=== PATIENT | female | born 1930 | race Caucasian/White ===

== ENCOUNTER 2017-12-26 08:27 | Observation (INO) | payer OTHER ==
[~2017-12-26] VITALS: Ht 160 cm; Wt 63.5 kg
[2017-12-26 08:30] VITALS: BP 183/85
--- NOTE | 2017-12-26 08:30 | NUR ---
PT BIBA TO BED 1
--- NOTE | 2017-12-26 08:35 | NUR ---
87F [facility] FROM [facility] C/O RT LEG PAIN S/P MECHANICAL FALL. PER [facility], PT WAS FOUND ON FLOOR THIS MORNING. PT STATES NO LOC AT TIME OF INCIDENT. PT AWAKE, ALERT, APPROPRIATE ON ARRIVAL. HX: CVA, SYNCOPE, HTN, DEPRESSION. DENIES N/V/D; SKIN IS PINK/WARM/DRY; AAOX4 , PT STATED USED TO AMB WITH WALK AT FACILITY. LUNGS CLEAR BL; PT DENIES ANY FEVER, CP, SOB, OR COUGH AT THIS TIME; PATIENT STATES PAIN OF 4/10 AT THIS TIME. PATIENT POSITIONED FOR COMFORT; HOB ELEVATED; BEDRAILS UP X2; BED DOWN. ER MD MADE AWARE OF PT STATUS.
[2017-12-26] MEDS ORDERED: ACETAMINOPHEN EXTRA STRENGTH 500 MG TAB PO ONE (08:45)
--- NOTE | 2017-12-26 08:59 | NUR ---
LAB AT BEDSIDE.
[2017-12-26 09:18] LABS: HEMATOCRIT 42.6 % (36-48); HEMOGLOBIN 13.7 g/dL (12.0-16.0); MEAN CORPUSCULAR HEMOGLOBIN 27 pg (27-31); MEAN CORPUSCULAR HGB CONC 32 g/dL (33-37); MEAN CORPUSCULAR VOLUME 82 fL (80-94); PLATELET COUNT (AUTO) 274 K/uL (140-450); RED BLOOD CELL COUNT(AUTO) 5.19 MIL/uL (4.20-5.40); RED CELL DISTRIBUTION WIDTH 14.4 % (11.6-13.7); WHITE BLOOD COUNT (AUTO) 12.4 K/uL (4.8-10.8)
[2017-12-26 09:19] LABS: BILIRUBIN,URINE NEGATIVE (NEGATIVE); BLOOD, URINE TRACE-I (NEGATIVE); COLOR,URINE YELLOW (YELLOW); LEUKOCYTE ESTERASE ,URINE NEGATIVE (NEGATIVE); NITRITE, URINE NEGATIVE (NEGATIVE); PH,URINE 7.5 (5.0-9.0); UGLUCOSE NEGATIVE (NEGATIVE)
[2017-12-26 09:30] LABS: ALBUMIN 3.8 g/dL (3.4-5.0); ANION GAP 13.7 (8-16); ASPARTATE AMINOTRANSFERASE 16 U/L (15-37); CARBON DIOXIDE 26.6 mmol/L (21-32); CHLORIDE 101 mmol/L (98-107); CREATININE 0.8 mg/dL (0.6-1.3); GLUCOSE 143 mg/dL (74-106); LYMPHOCYTES % (MANUAL) 11 % (20-46); MONOCYTES % (MANUAL) 4 % (5-12); POTASSIUM 3.3 mmol/L (3.5-5.1); SODIUM SERUM 138 mmol/L (136-145); TOTAL BILIRUBIN 0.8 mg/dL (0.0-1.0); UREA NITROGEN, BLOOD 14 mg/dL (7-18)
--- NOTE | 2017-12-26 09:37 | NUR ---
X RAY AT BEDSIDE.
[2017-12-26 09:40] LABS: APPEARANCE,URINE SLIGHTLY HAZY (CLEAR)
[2017-12-26 09:41] LABS: RBC,URINE 0-5 (RARE) /HPF (0-5); WBC,URINE 0-5 (RARE) /HPF (0-5)
--- NOTE | 2017-12-26 10:42 | NUR ---
PT AMB WITH ASSISTED 20 FEET.
--- NOTE | 2017-12-26 10:56 | NUR ---
X RAY AT BEDSIDE.
--- NOTE | 2017-12-26 11:07 | NUR ---
CALLED [facility] TO VERIFY PATIENT'S MEDICATIONS; SPOKE WITH TROY; TROY STATES PT TAKES HER OWN MEDICATION; SPOKE WITH FAMILY AT BEDSIDE; FAMILY STATES WILL CALL PT'S PRIMARY SIMULATION DEVELOPER, AND FAX MEDICATION LIST TO FAX NUMBER PROVIDED.
--- NOTE | 2017-12-26 11:14 | NUR ---
FAMILY AT BEDSIDE.
[2017-12-26] MEDS ORDERED: ACETAMINOPHEN 325 MG TAB PO PRN (11:40)
[2017-12-26] MEDS ORDERED: MORPHINE SULFATE 2 MG/ML SYR IVP PRN (11:40)
[2017-12-26] MEDS ORDERED: HYDROcodone/APAP 5/325 MG 1 TAB TAB PO PRN (11:40)
[2017-12-26 12:00] VITALS: BP 160/66
--- NOTE | 2017-12-26 12:00 | NUR ---
PATIENT WAS TRANSFERRED TO THE UNIT FROM ER IN [facility]. REPORT WAS GIVEN AT BEDSIDE. PATIENT IS AWAKE, ALERT, ORIENTED X3. RESPIRATION EVEN, UNLABOR ON ROOM AIR. SKIN DRY AND WARM. IV PATENT AND INTACT. VS WAS TAKEN. MRSA WAS SWABBED. PATIENT WAS ORIENTED TO ROOM, STAFF AND CALL LIGHT. DENIED PAIN, N/V. PLAN OF CARE WAS DISCUSSED WITH PATIENT AND FAMILY. BED AT LOW POSITION, SIDE RAILS ON, BED ALARM ON. CALL LIGHT WITHIN REACH
--- NOTE | 2017-12-26 12:01 | NUR ---
PT TAKEN TO THE FLOOR BY LEENA WATTS AND SHERLY CHEW
--- NOTE | 2017-12-26 12:07 | NUR ---
Patient will be admitted to care of DR STRAUSS. Admited to TELE. Will go to room 121A. Belongings list completed. Report to LEENA ENGEL.
--- NOTE | 2017-12-26 15:00 | NUR ---
DR. STRAUSS WAS AT BEDSIDE. NOTIFIED MD REGARDING CURRENT HOME MEDS, ADVISED TO CONTINUE WITH HOME MEDS
[2017-12-26] MEDS ORDERED: POTASSIUM CHLORIDE 10 MEQ TABER PO SCH (15:30)
[2017-12-26 16:00] VITALS: BP 144/69
--- NOTE | 2017-12-26 16:00 | NUR ---
PATIENT IS AWAKE, ALERT. RESPIRATION EVEN, UNLABOR ON ROOM AIR. DENIED PAIN AT THIS TIME. NO DISTRESS NOTED. FAMILY AT BEDSIDE. CALL LIGHT WITHIN REACH
--- NOTE | 2017-12-26 18:27 | NUR ---
HOME MEDS WERE GIVEN TO PHARMACIST TO DISPENSE
--- NOTE | 2017-12-26 18:40 | NUR ---
PATIENT AWAKE, ALERT. RESPIRATION EVEN, UNLABOR ON ROOM AIR. DENIED PAIN AT THIS TIME. IV PATENT AND INTACT. CALL LIGHT WITHIN REACH. FAMILY AT BEDSIDE
--- NOTE | 2017-12-26 19:23 | NUR ---
ENDORSEMENT GIVEN TO THE ENVIRONMENTAL REMEDIATION CONSULTANT NURSE. PATIENT IS STABLE AT THIS TIME
--- NOTE | 2017-12-26 19:30 | NUR ---
RECEIVED PT IN STABLE CONDITION FROM AM NURSE. AWAKE,ALERT AND ORIENTED X4. WITH NO C/O ANY DISCOMFORT NOTED. ON MED SURG . FAMILY AT BEDSIDE. WITH HL ON RT FA# 22. CLEAR AND PATENT. PLAN OF CARE DISCUSSED AND VERBALIZED UNDERSTANDING. BED ON LOW POSITION, FREQUENT ROUNDS NEEDED. CALL LIGHT PLACED WITHIN EASY REACH. WILL CONTINUE TO MONITOR.
[2017-12-26 19:40] VITALS: BP 155/66
--- NOTE | 2017-12-26 21:00 | NUR ---
FAMILY STILL AT BEDSIDE. PT RESTING IN BED. NO S/S OF ANY DISCOMFORT NOR PAIN NOTED.
--- NOTE | 2017-12-26 22:45 | NUR ---
PT ASLEEP. NO S/S OF ANY PAIN NOR DISCOMFORT NOTED.
--- NOTE | 2017-12-26 23:00 | NUR ---
ENDORSED PT IN STABLE CONDITION TO LEENA BARBOSAPOT PUSHER FOR CONTINUITY OF CARE
[2017-12-27] VITALS: BP 145/68
--- NOTE | 2017-12-27 | NUR ---
RECEIVED REPORT OF PT IN STABLE CONDITION FROM BENITEZ RN.PT IS SLEEPING.NO S/S OF ANY DISTRESS NOTED AT PRESENT TIME.VS STABLE.SL PATENT.CALL LIGHT IN REACH.WILL CONTINUE MONITORING.
[2017-12-27] MEDS ORDERED: LEVOTHYROXINE 0.05 MG TAB PO SCH (06:30)
--- NOTE | 2017-12-27 06:50 | NUR ---
SLEPT WELL.SYNTHROID PO GIVEN.PT TOLERATED WELL.NO DISTRESS NOTED AT THIS TIME.CALL LIGHT WITHIN REACH.
[2017-12-27 07:13] LABS: ANION GAP 14.6 (8-16); ASPARTATE AMINOTRANSFERASE 15 U/L (15-37); CARBON DIOXIDE 25.8 mmol/L (21-32); CHLORIDE 102 mmol/L (98-107); CREATININE 0.8 mg/dL (0.6-1.3); GLUCOSE 115 mg/dL (74-106); POTASSIUM 3.4 mmol/L (3.5-5.1); SODIUM SERUM 139 mmol/L (136-145); TOTAL BILIRUBIN 0.7 mg/dL (0.0-1.0); UREA NITROGEN, BLOOD 19 mg/dL (7-18)
--- NOTE | 2017-12-27 07:15 | NUR ---
RECEIVED REPORT FROM VISUAL MERCHANDISING ASSISTANT NURSE AT BEDSIDE FOR CONTINUITY OF CARE.
[2017-12-27 08:00] VITALS: BP 161/61
--- NOTE | 2017-12-27 08:00 | NUR ---
PT ALERT AND ABLE TO VERBALIZE NEEDS. NO ACUTE DISTRESS NOTED.LUNG SOUNDS CLEAR X ALL STARR. NO CO SOB. NO GI UPSET. BOWEL SOUNDS ACTIVE. PATIENT WITH IV TO RIGHT FOREARM 22 G. SL PATENT AND INTACT.DISCUSSED PLAN OF CARE WITH PATIENT. PT VERBALIZED UNDERSTANDING. PT DENIES PAIN .BED IN LOW POSITION. CALL LIGHT WITHIN REACH. WILL CONT TO MONITOR.
[2017-12-27] MEDS ORDERED: NIFEdipine 30 MG TABER PO SCH (09:00)
[2017-12-27] MEDS ORDERED: LOSARTAN 50 MG TAB PO SCH (09:00)
[2017-12-27] MEDS ORDERED: ENOXAPARIN 40 MG/0.4 ML SYR SUBQ SCH (09:00)
[2017-12-27] MEDS ORDERED: FUROSEMIDE 20 MG TAB PO SCH (09:00)
[2017-12-27] MEDS ORDERED: POTASSIUM CHLORIDE 10 MEQ TABER PO SCH ×2 (09:00→09:13)
--- NOTE | 2017-12-27 10:00 | NUR ---
PT ALERT AND ABLE TO VERBALIZE NEEDS. NO ACUTE DISTRESS NOTED. CALL LIGHT WITHIN REACH. FAMILY AT BEDSIDE. WILL CONT TO MONITOR.
[2017-12-27] MEDS ORDERED: VENLAFAXINE 100 MG TABLET PO SCH (10:05)
--- NOTE | 2017-12-27 12:00 | NUR ---
PT ALERT AND ABLE TO VERBALIZE NEEDS.NO ACUTE DISTRESS NOTED.PT DENIES PAIN .BED IN LOW POSITION. CALL LIGHT WITHIN REACH. WILL CONT TO MONITOR.
--- NOTE | 2017-12-27 13:00 | NUR ---
PATIENT TO DC HOME TODAY WAITNG FOR SON TO ARRIVE FOR DC. DAUGHTERS AT BEDSIDE.
--- NOTE | 2017-12-27 15:00 | NUR ---
DISCUSSED DISCHARGE INSTRUCTIONS WITH PT AND FAMILY AT BESIDE , SON AND 2 DAUGHTERS. VERBALIZED UNDERSTANDING AND AGREEMENT. ALL BELONGINGS ACCOUNTED FOR AND IN POSSESSION OF PT. DC IV TO RIGHT FA 22 G. LUMEN INTACT. PT TOLERATED WELL. REMOVED ALL ID BANDS. PATIENT GIVEN MEDICATION FROM HOME FROM PHARMACY. PATIENT TO F/U WITH PCP IN 1 WEEK. INSTRUCTED PATIENT TO CALL WHEN READY TO BE ESCORTED TO FRONT LOBBY FOR DISCHARGE.
--- NOTE | 2017-12-27 15:15 | NUR ---
PATIENT LEFT FACILITY VIA WC WITH DAUGHTERS AND SON WITHOUT DIFFICULTIES IN PRIVATE VEHICLE.
--- NOTE | 2017-12-27 15:30 | NUR ---
PATIENT HAS BEEN SCREENED AND CATEGORIZED MODERATE NUTRITION RISK. PATIENT WILL BE SEEN WITHIN 3-5 DAYS OF ADMISSION. 12/28/17 - 12/30/[address]
[2017-12-28] MEDS ORDERED: VENLAFAXINE 100 MG TABLET PO SCH (09:00)
== END 2017-12-27 19:59 | disposition home or self-care (01) ==
LOC: MED 08:27 → MMU 11:40 → MTU 14:12
PROVIDERS: ADMIT Internal Medicine; ATTEND Internal Medicine
DX: M25.551 Pain in right hip (principal); I10 Essential (primary) hypertension; E03.9 Hypothyroidism, unspecified; M19.90 Unspecified osteoarthritis, unspecified site; Z79.899 Other long term (current) drug therapy
CPT/HCPCS: 36415; 70450; 71045; 73521; 73562; 80053; 81001; 85025; 87081; 93005; 96372; 97140; 97162; 97530; 99285; C1758; G0378; J1650; Q0092